=== PATIENT | female | born 2000 | race American Indian/Alaskan Native ===

== ENCOUNTER 2019-09-24 15:08 | Emergency (ER) | payer MEDICAID ==
[2019-09-24 15:18] VITALS: BP 131/71
[2019-09-24 15:53] LABS: Basophils # (Auto) 0.1 K/mm3 (0.0-0.1); Basophils % (Auto) 0.8 % (0.0-1.8); Eosinophils # (Auto) 0.1 K/mm3 (0.0-0.4); Eosinophils % (Auto) 0.6 % (0.0-4.3); Hematocrit 37.6 % (30.3-42.9); Hemoglobin 12.1 gm/dl (10.1-14.3); Lymphocytes # (Auto) 2.3 K/mm3 (1.2-5.4); Lymphocytes % (Auto) 27.5 % (13.4-35.0); Mean Corpuscular HGB Conc 32 % (30-34); Mean Corpuscular Volume 80 fl (79-97); Monocytes # (Auto) 0.7 K/mm3 (0.0-0.8); Monocytes % (Auto) 8.9 % (0.0-7.3); Platelet Count 357 K/mm3 (140-440); Red Blood Count 4.73 M/mm3 (3.65-5.03); Red Cell Distribution Width 18.7 % (13.2-15.2)
[2019-09-24 16:04] LABS: BUN/Creatinine Ratio 13; Blood Urea Nitrogen 8 mg/dL (7-17); Calcium 9.5 mg/dL (8.4-10.2); Hemolysis Index 15
--- NOTE | 2019-09-24 17:25 | Emergency Department Report ---
ED HPI - General Chief complaint: Vaginal Bleeding Stated complaint: /BLEEDING/ABD PAIN Time Seen by Provider: 09/24/19 15:31 Source: patient Mode of arrival: Ambulatory Limitations: No Limitations - History of Present Illness Initial comments: This is a 19-year-old female nontoxic, well nourished in appearance, no acute signs of distress presents to the ED with c/o of vaginal bleeding and pelvic pain x1 day. Patient denies any abdominal upper pain. Patient denies any vaginal discharge or foul odor. Patient denies any nausea, vomiting, chest pain, shortness of breathe, fever, chills, headache, stiff neck, numbness, tingling. Patient denies any urinary symptoms. Patient denies any allergies or PMH. MD Complaint: vaginal bleeding, other (pelvic pain) -: days(s) Location: pelvis Radiation: none Severity: mild Severity scale (0 -10): 3 Quality: cramping, aching Consistency: constant Improves with: none Worsens with: none Associated symptoms: vaginal bleeding. denies: nausea/vomiting, vaginal discharge, abdominal pain, dysuria, headache, vision changes, malaise, dysparuenia, rash, seizure, shortness of breath, syncope, weakness Vaginal bleeding: light :: Yes Pre-huong care: none - Related Data Previous Rx's Medication Instructions Recorded Last Taken Type predniSONE [Deltasone] 20 mg PO QDAY #5 tab 02/16/15 Unknown Rx 21/Iron Fu/Folic Acid 1 each PO DAILY #30 tablet 09/24/19 Unknown Rx [ Complete Caplet] Allergies Allergy/AdvReac Type Severity Reaction Status Date / Time No Known Allergies Allergy Unverified 02/16/15 16:36 ED Review of Systems ROS: Stated complaint: /BLEEDING/ABD PAIN Other details as noted in HPI Constitutional: denies: chills, fever Eyes: denies: eye pain, eye discharge, vision change ENT: denies: ear pain, throat pain Respiratory: denies: cough, shortness of breath, wheezing Cardiovascular: denies: chest pain, palpitations Endocrine: no symptoms reported Gastrointestinal: denies: abdominal pain, nausea, vomiting, diarrhea Genitourinary: abnormal menses. denies: urgency, dysuria, discharge Musculoskeletal: denies: back pain, joint swelling, arthralgia Skin: denies: rash, lesions Neurological: denies: headache, weakness, paresthesias Psychiatric: denies: anxiety, depression Hematological/Lymphatic: denies: easy bleeding, easy bruising ED Past Medical Hx - Past Medical History Previous Medical History?: No - Surgical History Past Surgical History?: No - Social History Smoking Status: Never Smoker Substance Use Type: None - Medications Home Medications: Home Medications Medication Instructions Recorded Confirmed Last Taken Type predniSONE [Deltasone] 20 mg PO QDAY #5 tab 02/16/15 Unknown Rx 21/Iron Fu/Folic Acid 1 each PO DAILY #30 tablet 09/24/19 Unknown Rx [ Complete Caplet] ED Physical Exam - General Limitations: No Limitations General appearance: alert, in no apparent distress - Head Head exam: Present: atraumatic, normocephalic - Neck Neck exam: Present: normal inspection, full ROM - GI/Abdominal GI/Abdominal exam: Present: soft, normal bowel sounds. Absent: distended, tenderness, guarding, rebound, rigid, diminished bowel sounds - Extremities Exam Extremities exam: Present: normal inspection, full ROM - Back Exam Back exam: Present: normal inspection, full ROM. Absent: tenderness, CVA tenderness (R), CVA tenderness (L), muscle spasm, paraspinal tenderness, vertebral tenderness, rash noted - Neurological Exam Neurological exam: Present: alert, oriented X3, normal gait - Psychiatric Psychiatric exam: Present: normal affect, normal mood - Skin Skin exam: Present: warm, dry, intact, normal color. Absent: rash ED Course Vital Signs 09/24/19 15:11 Temperature 98.1 F Pulse Rate 89 Respiratory 20 Rate Blood Pressure 131/71 O2 Sat by Pulse 99 Oximetry - Reevaluation(s) Reevaluation #1: 09/24/19 17:25 Patient is speaking in full sentences with no signs of distress noted. ED Medical Decision Making - Lab Data Result diagrams: 09/24/19 15:44 09/24/19 15:44 - Medical Decision Making This is a 19-year-old female presents with threatened miscarriage. Patient is stable and was examined by me. Normal abdominal exam. US OB obtained and dictated by the radiologist. Ua obtained. Quantative serum test obtained. Patient notified of the US report with no questions noted by the patient. Patient was instructed f/u with [facility] in 3-5 days. RH factor positive. Labs within normal limits. At time of discharge, the patient does not seem toxic or ill in appearance. No acute signs of distress noted. Patient agrees to discharge treatment plan of care. No further questions noted by the patient. Critical care attestation.: If time is entered above; I have spent that time in minutes in the direct care of this critically ill patient, excluding procedure time. ED Disposition Clinical Impression: Threatened miscarriage Disposition: DC- TO HOME OR SELFCARE Is pt being admited?: No Does the pt Need Aspirin: No Condition: Stable Instructions: Threatened Miscarriage (ED) Additional Instructions: Follow-up with a OBGYN doctor in 3-5 days or if symptoms worsen and continue return to emergency room as soon as possible. Prescriptions: 21/Iron Fu/Folic Acid [ Complete Caplet] 1 each PO DAILY #30 tablet Referrals: PRIMARY CARE, [Primary Care Provider] - 3-5 Days FREDRICK CERRATO MD [Staff Physician] - 3-5 Days [facility] [Provider Group] - 3-5 Days Forms: Work/School Release Form(ED)
[2019-09-24 17:45] LABS: Color,Urine Straw (Yellow)
--- NOTE | 2019-09-24 17:46 | Ultrasound Report ---
ULTRASOUND OBSTETRIC INDICATION / CLINICAL INFORMATION: pelvic pain and vaginal bleeding. TECHNIQUE: Transabdominal and Transvaginal. COMPARISON: None available. FINDINGS: GESTATIONAL SAC: Well-defined oval shape and intrauterine in location. 1.7 x 2.6 x 2.0 cm subchorioni c hemorrhage/implantation bleed YOLK SAC: No significant abnormality. EMBRYO/FETUS: No significant abnormality. - [place]-Rump Length = 1.5 cm = 7 weeks, 6 day(s). - Heart Rate, beats per minute (if present) = 159 ADNEXA: 1.8 cm right ovarian follicular cyst. 2.2 cm left ovarian follicular cyst. FREE FLUID: None. ADDITIONAL FINDINGS: None. IMPRESSION: 1. Single, living intrauterine with estimated sonographic age of 7 weeks, 6 day(s). 2. Subchorionic hemorrhage/implantation bleed 3. Bilateral ovarian follicular cysts. No free fluid Signer Name: Dc Begum MD Signed: 09/24/2019 5:42 PM Workstation Name: [id number]
--- NOTE | 2019-09-24 17:46 | Ultrasound Report ---
ULTRASOUND OBSTETRIC INDICATION / CLINICAL INFORMATION: pelvic pain and vaginal bleeding. TECHNIQUE: Transabdominal and Transvaginal. COMPARISON: None available. FINDINGS: GESTATIONAL SAC: Well-defined oval shape and intrauterine in location. 1.7 x 2.6 x 2.0 cm subchorioni c hemorrhage/implantation bleed YOLK SAC: No significant abnormality. EMBRYO/FETUS: No significant abnormality. - [place]-Rump Length = 1.5 cm = 7 weeks, 6 day(s). - Heart Rate, beats per minute (if present) = 159 ADNEXA: 1.8 cm right ovarian follicular cyst. 2.2 cm left ovarian follicular cyst. FREE FLUID: None. ADDITIONAL FINDINGS: None. IMPRESSION: 1. Single, living intrauterine with estimated sonographic age of 7 weeks, 6 day(s). 2. Subchorionic hemorrhage/implantation bleed 3. Bilateral ovarian follicular cysts. No free fluid Signer Name: Dc Begum MD Signed: 09/24/2019 5:42 PM Workstation Name: [id number]
[2019-09-24 17:48] LABS: Bilirubin,Urine Negative (Negative)
[2019-09-24 17:49] LABS: Blood,Urine Negative (Negative); Protein,Urine <15 mg/dL mg/dL (Negative); Urobilinogen,Urine < 2.0 mg/dL (<2.0)
[2019-09-24 17:52] LABS: Mucus,Urine Few /HPF
== END 2019-09-24 17:55 | disposition home or self-care (01) ==
LOC: ED 15:08
DX: O20.0 Threatened abortion (principal); Z3A.01 Less than 8 weeks gestation of pregnancy
CPT/HCPCS: 36415; 76801; 76817; 80048; 81001; 84702; 85025; 86900; 86901

== ENCOUNTER 2020-04-16 07:44 | Inpatient (IN) | payer MEDICAID ==
[2020-04-16] MEDS ORDERED: miSOPROStol 200 MCG TAB PR PRN (08:24)
[2020-04-16] MEDS ORDERED: TERBUTALINE 1 MG/1 ML INJ SUB-Q PRN (08:24)
[2020-04-16] MEDS ORDERED: CARBOPROST TROMETHAMINE 250 MCG/1 ML INJ IM PRN (08:24)
[2020-04-16] MEDS ORDERED: MINERAL OIL 30 ML ORAL LIQD PO PRN (08:24)
[2020-04-16] MEDS ORDERED: ePHEDrine SULFATE 50 MG/1 ML INJ IV PRN (08:24)
[2020-04-16] MEDS ORDERED: ONDANSETRON 4 MG/2 ML INJ IV PRN (08:24)
[2020-04-16] MEDS ORDERED: fentaNYL 100 MCG/2 ML INJ IV PRN (08:24)
[2020-04-16] MEDS ORDERED: OXYTOCIN 10 UNIT/1 ML INJ IM PRN (08:24)
[2020-04-16] MEDS ORDERED: LIDOCAINE (2%) 20 MG/1 ML VIAL 20 ML MDV INFILTRATI ONE (08:24)
[2020-04-16] MEDS ORDERED: MAGNESIUM SULFATE 4 GM/100 ML BAG IV ONE ×2 (08:34→09:00)
[2020-04-16 08:36] LABS: Bacteria,Urine 1+ /HPF (Negative); Bilirubin,Urine NEG (Negative); Blood,Urine NEG (Negative); Color,Urine Straw (Yellow); Urobilinogen,Urine < 2.0 mg/dL (<2.0)
--- NOTE | 2020-04-16 08:39 | History and Physical Report ---
History of Present Illness Date of examination: 04/16/20 Chief complaint: Labor contractions History of present illness: pt arrived via EMS in labor @ 34+2 weeks Pt reports recent admission to [facility] for pre-e, d/c'd 2 days ago on bed rest (no meds) pt denies surgical or medical hx reports +CT 3 years ago reports THC in last month hx EAB and Vac assisted delivery 7#, full term, no complications. 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 (3 years ago) Family/Genetic History: none Social history: single, other (THC use last month) - Obstetrical History Expected Date of Delivery: 05/26/20 Actual Gestation: 34 Week(s) 2 Day(s) : 3 Para: 1 Hx # Term Pregnancies: 1 Number of Pregnancies: 0 Spontaneous Abortions: 0 Induced : 1 Number of Living Children: 1 Medications and Allergies Allergies Allergy/AdvReac Type Severity Reaction Status Date / Time No Known Allergies Allergy Unverified 02/16/15 16:36 Home Medications Medication Instructions Recorded Confirmed Last Taken Type predniSONE [Deltasone] 20 mg PO QDAY #5 tab 02/16/15 Unknown Rx 21/Iron Fu/Folic Acid 1 each PO DAILY #30 tablet 09/24/19 Unknown Rx [ Complete Caplet] Active Meds: Active Medications Carboprost Tromethamine (Hemabate) 250 mcg IM ONCE PRN PRN Reason: Uterine Bleeding Ephedrine Sulfate (Ephedrine Sulfate) 10 mg IV Q2M PRN PRN Reason: Hypotension Fentanyl (Sublimaze) 100 mcg IV Q2H PRN PRN Reason: Pain,Severe (7-10) LABOR PAIN Lactated Ringer's (Lactated Ringers) 1,000 mls @ 125 mls/hr IV DIRECT JOSE Lactated Ringer's (Lactated Ringers) 1,000 mls @ 125 mls/hr IV DIRECT JSOE Oxytocin/Sodium Chloride (Pitocin/Ns 30 Unit/500ml) 30 units in 500 mls @ 40 mls/hr IV TITR JOSE; Protocol Ampicillin Sodium (Ampicillin/Ns 2 Gm/100 Ml) 2 gm in 100 mls @ 100 mls/hr IV ONCE ONE; Protocol Stop: 04/16/20 09:59 Ampicillin Sodium (Ampicillin/Ns 1 Gm/50 Ml) 1 gm in 50 mls @ 100 mls/hr IV Q4HR JOSE; Protocol Lactated Ringer's (Lactated Ringers) 1,000 mls @ 125 mls/hr IV DIRECT JOSE Magnesium Sulfate (Magnesium Sulfate 4gm/100ml) 4 gm in 100 mls @ 300 mls/hr IV ONCE ONE Stop: 04/16/20 08:45 Magnesium Sulfate (Magnesium Sulfate 40gm/1000ml) 40 gm in 1,000 mls @ 50 mls/hr IV DIRECT JOSE Lidocaine (Xylocaine 2%) 20 ml INFILTRATI ONCE ONE Stop: 04/16/20 08:25 Mineral Oil (Mineral Oil) 30 ml PO QHS PRN PRN Reason: Constipation Misoprostol (Cytotec) 800 mcg CA ONCE PRN PRN Reason: Uterine Bleeding Ondansetron HCl (Zofran) 4 mg IV Q8H PRN PRN Reason: Nausea And Vomiting Oxytocin (Pitocin) 10 unit IM ONCE PRN PRN Reason: Uterine Bleeding Terbutaline Sulfate (Brethine) 0.25 mg SUB-Q ONCE PRN PRN Reason: Hyperstimulation/Hypertonicity Review of Systems All systems: negative - Vital Signs Vital signs: Vital Signs Temp Resp 98.2 F 17 04/16/20 08:17 04/16/20 08:17 Temp Pulse Resp BP Pulse Ox 98.2 F 60 17 180/95 04/16/20 08:17 04/16/20 08:18 04/16/20 08:17 04/16/20 08:18 - Physical Exam Breasts: Positive: normal Cardiovascular: Regular rate Lungs: Positive: Clear to auscultation, Normal air movement Abdomen: Positive: normal appearance, soft Genitourinary (Female): Positive: normal external genitalia, normal perenium Vagina: Positive: normal moisture Anus/Rectum: Positive: normal perianal skin Extremities: Positive: normal - Obstetrical FHR: auscultation normal Uterine Contraction Monitor Mode: External Cervical Dilatation: 7 (per triage nurse) Cervical Effacement Percentage: 100 station: -1 Uterine Contraction Frequency (min): 2-3 Uterine Contraction Duration: 60 Uterine Contraction Pattern: Regular Uterine Tone Measurement Phase: Contraction Uterine Contraction Intensity: Strong/Firm Results All other labs normal. Assessment and Plan 20 y/o @ 34+2 weeks admitted in labor, reports recent dx of pre-e w/ admission to [facility], [facility] completed. Admission orders in EMR, anticipate vaginal delivery. Dr. Barber aware. - Patient Problems (1) 34 weeks gestation of Current Visit: Yes Status: Acute Plan to address problem: NICU notified (2) labor Current Visit: Yes Status: Acute Qualifiers: labor trimester: third trimester labor delivery status: with delivery in third trimester Fetus number: single or unspecified fetus Qualified Code(s): O60.14X0 - labor third trimester with delivery third trimester, not applicable or unspecified (3) Pre-eclampsia Current Visit: Yes Status: Acute Qualifiers: Trimester: third trimester Qualified Code(s): O14.93 - Unspecified pre- eclampsia, third trimester Plan to address problem: Magnesium sulfate for neuro protection strict I&O delivery is eminent
[2020-04-16] MEDS ORDERED: MAGNESIUM SULFATE 40GM/1000ML 40 GM/1,000 ML BAG IV SCH (09:00)
[2020-04-16] MEDS ORDERED: OXYTOCIN DRIP 30 UNITS/500 ML BAG IV SCH (09:00)
[2020-04-16] MEDS ORDERED: LACTATED RINGERS 1,000 ML IV SCH ×2 (09:00)
[2020-04-16] MEDS ORDERED: AMPICILLIN/NS 2 GM/100 ML 2 GM/100 ML BAG IV ONE (09:00)
--- NOTE | 2020-04-16 09:42 | Event Note ---
Date: 04/16/20 pt states EDC might be 05/04/2020, MFM she was seeing for pre-e set date as 05/26/20 but that was late in the . Pt states she started care in [place] x5-6 visits and they told her her edc was 05/04/2020.
--- NOTE | 2020-04-16 09:44 | Procedure Note ---
OB Delivery Note - Delivery Date of Delivery: 04/16/20 Director Of Graduate Medical Education: LAURENT HUERTAS ([facility]) Estimated blood loss: 300cc - Vaginal Delivery presentation: vertex Delivery position: OA Intrapartum events: labor-<37 weeks, meconium, preeclampsia Delivery induction: none Delivery monitor: external FHT, external uterine Route of delivery: Delivery placenta: spontaneous Delivery cord: nuchal cord (tight - somersault ), 3 umbilical vessels Episiotomy: none Delivery laceration: none Anesthesia: none Delivery comments: Male birthed over intact perineum, tight cord around neck and torso, somersaulted though. Cord clamped and cut, handed off to warmer for assessment by NICU team. Placenta del spontaneously in 2 pieces, appears to be complete with possible velamentous cord insertion. no lacerations to repair. IV site unusable initially, and with hx PPH, cytotec placed rectally. EBL 300. all counts correct. taken to NICU for observation d/t possible prematurity. pt will remain on L&D x 24hours for Mag sulfate therapy. - Infant A Gender: Male (4#12)
[2020-04-16] MEDS ORDERED: PROMETHAZINE 25 MG TAB PO PRN (10:00)
[2020-04-16] MEDS ORDERED: BENZOCAINE/MENTHOL 20/0.5% TOP SPRAY 56 GM TP PRN (10:00)
[2020-04-16] MEDS ORDERED: diphenhydrAMINE 25 MG CAP PO PRN (10:00)
[2020-04-16] MEDS ORDERED: LANOLIN/ZINC/DIMETHICONE (LANSINOH) 7 GM TP PRN (10:00)
[2020-04-16] MEDS ORDERED: WITCH HAZEL/ GLYCERIN PAD TP PRN (10:00)
[2020-04-16] MEDS: IBUPROFEN 600 MG TAB PO SCH ×2 (10:16→18:06)
[2020-04-16 10:29] LABS: Amphetamine Screen,Urine Negative; Benzodiazepines Screen,Urine Negative; Cannabinoid Screen,Urine Negative; Cocaine Screen,Urine Negative; Methadone Screen,Urine Negative; Opiate Screen,Urine Negative
[2020-04-16] MEDS: ACETAMINOPHEN 325 MG TAB PO PRN ×2 (11:00→18:06)
[2020-04-16 12:20] LABS: Hepatitis C Virus Antibody Non-Reactive (NonReactive)
[2020-04-16] MEDS: LACTATED RINGERS 1,000 ML IV SCH (12:40)
[2020-04-16] MEDS ORDERED: AMPICILLIN/NS 1 GM/50 ML 1 GM/50 ML BAG IV SCH (14:00)
[2020-04-16] MEDS ORDERED: KETOROLAC 30 MG/1 ML INJ ONE (16:43)
[2020-04-16] MEDS ORDERED: BUPIVACAINE /DEX-WATER 0.75% (2 ML) AMPULE INFILTRATI ONE (16:43)
[2020-04-16] MEDS ORDERED: BUPIVACAINE/PF (0.5%) 5 MG/1 ML 30 ML VIAL INFILTRATI ONE (16:43)
[2020-04-16] MEDS ORDERED: ONDANSETRON 4 MG/2 ML INJ ONE (16:43)
[2020-04-16 18:05] LABS: Hematocrit 31.8 % (30.3-42.9); Hemoglobin 10.5 gm/dl (10.1-14.3); Mean Corpuscular HGB Conc 33 % (30-34); Mean Corpuscular Volume 78 fl (79-97); Platelet Count 277 K/mm3 (140-440); Red Blood Count 4.09 M/mm3 (3.65-5.03); Red Cell Distribution Width 15.5 % (13.2-15.2)
[2020-04-16 18:19] LABS: Alanine Aminotransferase 12 units/L (7-56)
[2020-04-16] MEDS ORDERED: hydrALAZINE 20 MG/1 ML INJ IV ONE (19:29)
--- NOTE | 2020-04-16 19:33 | Event Note ---
Date: 04/16/20 Mg Level 7.6, order given to RN to hold for 1hoour then restart at 1gm/hr.Also BP's increaseing, hydralazine 5mg IV order, RN aware. VAISHALI thomson
[2020-04-16] MEDS: FERROUS SULFATE 325 MG TAB PO SCH (20:39)
[2020-04-16] MEDS ORDERED: GABAPENTIN 300 MG CAP PO ONE (21:21)
[2020-04-16] MEDS: DOCUSATE SODIUM 100 MG CAP PO SCH (21:22)
[2020-04-16 21:52] LABS: Hemoglobin 10.8 gm/dl (10.1-14.3)
[2020-04-16] MEDS ORDERED: MAGNESIUM HYDROXIDE (MOM) ORAL LIQD UDC PO PRN (22:00)
[2020-04-17] MEDS: ACETAMINOPHEN 325 MG TAB PO PRN (04:03)
[2020-04-17] MEDS ORDERED: NIFEdipine*For Tocolysis only* 10 MG CAPSULE ONE (07:04)
[2020-04-17] MEDS ORDERED: NIFEdipine*For Tocolysis only* 10 MG CAPSULE PO ONE (07:05)
[2020-04-17] MEDS: LACTATED RINGERS 1,000 ML IV SCH (08:21)
--- NOTE | 2020-04-17 08:34 | Progress Note ---
Subjective - Subjective Date of service: 04/17/20 (Pt with abdominal cramping) Principal diagnosis: s/p , no care, on mag infusion for pre eclampsia. Patient reports: flatus [place]: doing well Objective - Vital Signs Latest vital signs: Vital Signs Temp Pulse Resp BP BP Pulse Ox 04/17/20 08:28 91 H 100 04/17/20 08:23 97 H 99 04/17/20 08:18 94 H 99 04/17/20 08:13 86 100 04/17/20 08:08 98.9 F 85 14 132/69 100 04/17/20 08:03 78 100 04/17/20 07:58 81 100 04/17/20 07:57 78 132/69 04/17/20 07:53 82 100 04/17/20 07:48 93 H 100 04/17/20 07:47 75 134/85 04/17/20 07:43 80 100 04/17/20 07:42 71 134/98 04/17/20 07:38 77 100 04/17/20 07:33 71 100 04/17/20 07:28 81 100 04/17/20 07:23 63 100 04/17/20 07:18 65 100 04/17/20 07:13 66 100 04/17/20 07:08 84 100 04/17/20 07:03 62 100 04/17/20 06:58 74 100 04/17/20 06:57 78 187/112 04/17/20 06:53 64 100 04/17/20 06:48 63 100 04/17/20 06:43 79 100 04/17/20 06:38 74 99 04/17/20 06:33 65 100 04/17/20 06:28 66 100 04/17/20 06:23 63 100 04/17/20 06:18 63 100 04/17/20 06:13 69 100 04/17/20 06:08 72 100 04/17/20 06:03 63 100 04/17/20 05:58 71 147/96 100 20 05:53 71 100 04/17/20 05:48 66 100 04/17/20 05:43 69 100 04/17/20 05:38 66 100 04/17/20 05:33 74 100 04/17/20 05:28 67 100 11/18/20 05:23 70 100 11/18/20 05:18 67 100 11/18/20 05:13 72 100 11/18/20 05:08 88 100 11/18/20 05:03 62 100 11/18/20 04:58 67 100 11/18/20 04:57 60 136/90 11/18/20 04:53 71 100 11/18/20 04:48 79 100 11/18/20 04:43 65 100 11/18/20 04:38 67 100 11/18/20 04:33 83 100 11/18/20 04:28 69 100 11/18/20 04:23 68 100 11/18/20 04:18 78 100 11/18/20 04:13 84 100 11/18/20 04:08 87 100 11/18/20 04:03 65 100 11/18/20 03:58 65 100 11/18/20 03:57 79 134/85 11/18/20 03:53 87 100 11/18/20 03:48 63 100 11/18/20 03:43 69 100 11/18/20 03:38 72 100 11/18/20 03:33 98 H 100 11/18/20 03:28 69 100 11/18/20 03:23 68 100 11/18/20 03:18 69 100 11/18/20 03:13 71 100 11/18/20 03:08 72 100 11/18/20 03:03 74 100 11/18/20 02:58 65 100 11/18/20 02:57 60 141/92 11/18/20 02:52 86 99 11/18/20 02:47 70 100 11/18/20 02:42 67 100 11/18/20 02:37 69 161/108 100 11/18/20 02:32 89 100 11/18/20 02:27 87 100 11/18/20 02:22 67 100 11/18/20 02:17 86 100 11/18/20 02:12 87 100 11/18/20 02:07 66 100 11/18/20 02:02 69 100 11/18/20 01:57 81 178/109 97 11/18/20 01:52 68 100 11/18/20 01:47 72 100 11/18/20 01:42 72 100 11/18/20 01:37 68 100 11/18/20 01:32 72 100 18/20 01:27 67 100 18/20 01:22 63 100 1820 01:17 81 100 1820 01:12 66 100 20 01:07 69 100 18/20 01:02 81 100 20 01:00 72 148/89 18/20 00:57 77 148/89 100 1820 00:52 71 100 1820 00:47 76 100 18/20 00:43 65 155/89 1820 00:42 71 100 18/20 00:37 71 100 1820 00:32 79 100 1820 00:27 78 100 1820 00:22 83 100 20 00:17 71 100 20 00:12 86 100 20 00:07 86 100 20 00:02 88 100 20 23:57 79 148/96 100 20 23:52 84 99 17/20 23:47 83 100 20 23:42 85 100 1720 23:37 99 H 99 20 23:32 89 100 20 23:27 85 100 20 23:22 81 100 20 23:17 85 100 20 23:07 81 100 20 23:02 79 100 20 22:57 82 139/92 100 20 22:52 81 100 20 22:49 71 136/90 17/20 22:47 78 100 1720 22:42 80 100 17/20 22:37 87 100 1720 22:32 78 100 20 22:27 82 100 20 22:22 87 96 20 21:57 88 126/78 1720 21:33 89 99 1720 21:28 86 100 1720 21:23 83 100 1720 21:18 84 100 1720 21:13 86 100 20 21:09 79 148/96 11/17/20 21:08 78 100 17/20 21:03 83 100 17/20 20:58 85 100 17/20 20:57 92 H 150/101 17/20 20:53 86 100 17/20 20:52 84 152/100 17/20 20:48 90 100 17/20 20:43 80 100 17/20 20:41 74 175/105 17/20 20:38 74 137/100 100 17/20 20:34 65 155/104 17/20 20:33 63 100 17/20 20:28 61 100 17/20 20:23 89 100 17/20 20:18 63 100 17/20 20:13 63 99 17/20 20:08 62 99 17/20 20:03 64 100 17/20 19:59 107 H 148/105 75 L 17/20 19:58 63 100 17/20 19:57 67 158/103 17/20 19:52 69 99 17/20 19:47 66 100 17/20 19:42 68 100 17/20 19:37 84 100 17/20 19:32 80 99 17/20 19:27 76 146/103 100 17/20 19:22 76 100 17/20 19:17 69 100 17/20 19:12 78 100 17/20 19:07 76 100 17/20 19:02 73 100 17/20 18:57 69 173/113 100 17/20 18:52 81 100 17/20 18:47 80 100 17/20 18:42 74 100 17/20 18:37 71 100 17/20 18:32 73 100 17/20 18:27 66 100 17/20 18:22 71 100 17/20 18:17 71 100 17/20 18:12 70 100 17/20 18:07 72 100 17/20 18:02 70 99 17/20 17:57 77 132/96 100 17/20 17:52 75 100 17/20 17:47 76 100 17/20 17:42 74 100 17/20 17:37 74 100 17/20 17:32 74 100 17/20 17:27 69 100 17/20 17:22 86 99 17/20 17:17 71 100 17/20 17:13 69 134/96 17/20 17:12 75 100 17/20 17:07 72 100 17/20 17:02 68 100 17/20 16:57 73 100 17/20 16:52 71 100 17/20 16:47 71 100 17/20 16:43 68 134/93 17/20 16:42 74 100 17/20 16:37 72 100 17/20 16:32 77 100 17/20 16:27 72 100 17/20 16:22 73 100 04/16/20 16:17 68 100 17/20 16:13 71 148/104 17/20 16:12 75 99 17/20 16:07 71 100 17/20 16:02 73 100 17/20 15:57 69 100 17/20 15:52 73 100 17/20 15:47 66 100 17/20 15:43 72 135/91 1720 15:42 73 100 17/20 15:37 66 100 17/20 15:32 73 100 17/20 15:27 84 100 17/20 15:22 75 100 1720 15:17 82 100 1720 15:13 80 155/98 1720 15:08 84 100 17/20 15:03 77 100 17/20 14:58 67 100 17/20 14:53 69 100 17/20 14:48 74 100 17/20 14:43 65 140/92 100 1720 14:38 65 100 17/20 14:33 75 100 17/20 14:28 68 100 17/20 14:23 67 100 17/20 14:18 69 100 1720 14:13 67 136/92 100 17/20 14:08 65 100 17/20 14:03 66 100 20 13:58 62 100 20 13:53 65 100 20 13:48 70 100 20 13:43 74 134/85 100 20 13:38 64 100 04/16/20 13:33 65 100 20 13:28 74 100 20 13:23 65 100 20 13:18 67 99 20 13:13 81 169/107 100 20 13:08 65 100 20 13:03 68 100 20 12:58 71 100 20 12:53 84 99 20 12:52 59 L 148/100 20 12:48 73 100 20 12:43 70 159/104 100 20 12:38 66 100 20 12:33 66 99 20 12:28 66 100 20 12:23 68 100 20 12:18 68 100 20 12:13 61 140/94 99 20 12:08 63 100 20 12:03 77 99 20 11:58 65 99 20 11:53 65 99 20 11:48 61 99 20 11:43 83 168/98 100 20 11:38 62 100 20 11:33 64 99 20 11:28 64 99 20 11:23 63 99 20 11:18 62 100 04/16/20 11:13 62 140/88 100 20 11:08 64 100 04/16/20 11:03 64 100 17/20 10:58 67 100 17/20 10:53 66 100 17/20 10:48 63 100 17/20 10:43 61 154/96 100 17/20 10:38 68 100 17/20 10:34 78 143/109 17/20 10:33 65 100 17/20 10:28 68 100 17/20 10:23 73 100 17/20 10:18 67 100 11/17/20 10:13 72 100 04/16/20 10:08 73 154/98 100 04/16/20 10:03 70 100 04/16/20 10:01 68 166/101 04/16/20 09:58 75 100 04/16/20 09:53 74 100 04/16/20 09:46 67 130/99 04/16/20 09:26 75 162/101 04/16/20 09:07 86 100 04/16/20 09:02 96 H 99 04/16/20 08:49 88 131/83 Intake and Output 04/16/20 04/17/20 04/17/20 22:59 06:59 14:59 Intake Total 1480 Output Total 2200 1300 100 Balance -2200 180 -100 Intake: IV 1000 Lactated Ringers 1,000 ml 1000 @ 125 mls/hr IV DIRECT JOSE Rx#:[id number] Oral 480 Output: Urine 2200 1300 100 Indwelling Catheter 2200 1300 100 Other: Total, Intake Amount 240 Total, Output Amount 600 500 100 - Exam Narrative Exam: Pt states that she has a slight CADENA. Denies blurred vision, spots before her eyes, shortness of breath, chest pain, and upper abdominal pain. She received a dose of Procardia 10 mg after elevated BP's of 180's/100's. BP ranges are now 110-130's/60-70's. Also her mag was turned off for two hours during the shift production associate and turned back on at 2100. She had elevated mag levels of 7.6. Will continue with mag for now until 11am. Will also discuss pt with Dr. Lyles. Explained plan of care to the patient: monitoring of blood pressures, mag administration keeping on until 11am, taking out Andrade, and if blood pressures remain stable we will transfer her to the mother baby. Pt verbalized understanding. Breasts: Present: deferred Cardiovascular: Present: Regular rate, Normal S1, Normal S2 Lungs: Present: Clear to auscultation Abdomen: Present: normal appearance, soft Vulva: both: normal Uterus: Present: normal (Moderate lochia rubra), firm Extremities: Present: normal Deep Tendon Reflex Grade: Normal +2 - Labs Labs: Abnormal lab results 04/16/20 04/16/20 04/16/20 Range/Units 17:30 17:30 17:30 WBC 17.6 H (4.5-11.0) K/mm3 MCV 78 L (79-97) fl MCH 26 L (28-32) pg RDW 15.5 H (13.2-15.2) % Magnesium 7.60 H (1.7-2.3) mg/dL Lactate Dehydrogenase 268 H (91-180) units/L 04/16/20 04/17/20 Range/Units 21:34 03:51 WBC (4.5-11.0) K/mm3 MCV (79-97) fl MCH (28-32) pg RDW (13.2-15.2) % Magnesium 5.20 H 5.30 H (1.7-2.3) mg/dL Lactate Dehydrogenase (91-180) units/L
[2020-04-17] MEDS ORDERED: DIPHtheria,PERTUSSIS(ACELL),TETANUS VACCINE/PF 0.5 ML VIAL IM ONE (09:34)
[2020-04-17] MEDS: IBUPROFEN 600 MG TAB PO SCH ×3 (11:57→18:20)
[2020-04-17] MEDS: PRENATAL VIT27-FE FUMARATE-FOLIC ACID VIT TAB PO SCH (11:57)
[2020-04-17] MEDS: FERROUS SULFATE 325 MG TAB PO SCH (16:25)
[2020-04-18] MEDS: IBUPROFEN 600 MG TAB PO SCH ×3 (01:29→13:45)
[2020-04-18] MEDS: FERROUS SULFATE 325 MG TAB PO SCH ×2 (01:30→13:45)
[2020-04-18] MEDS: DOCUSATE SODIUM 100 MG CAP PO SCH ×2 (01:31→10:30)
--- NOTE | 2020-04-18 08:22 | Discharge Summary ---
Providers - Providers Date of Admission: 04/16/20 09:11 Date of discharge: 04/18/20 (Pt agrees with D/C home today) Attending physician: STEVE GIPSON Primary care physician: CONTENT ASSISTANT Hospitalization Reason for admission: active labor, IUP - Delivery: Episiotomy: none Laceration: none complications: other (pre-eclampsia) Discharge diagnosis: delivery baby: male Pertinent studies: BP's 110-130s/60-80 with most recent 130's/70's this AM. Post-delivery H/H . Hospital course: 20 y.o. female, , limited PNC, PTL at 34wks. complicated by pre- eclampsia, MagSO4 given PP, and started on Labetalol 200 mg BID. P: D/C home today on anti-hypertensive regimen. F/U in office in one week for BP check. Condition at discharge: Good Disposition: DC- TO HOME OR SELFCARE - Discharge Diagnoses (1) Pre-eclampsia Status: Acute Qualifiers: Trimester: third trimester Qualified Code(s): O14.93 - Unspecified pre- eclampsia, third trimester Comment: BP ranging 110-130/60-80 with most recent BP 130s/70s this AM. Denies CADENA, blurry vision, dizziness, chest pain, RUQ pain, and swelling. Continues with Labetalol 200 mg BID. P: Will continue with anti-hypertensive regimen at discharge and f/u in office in 1-wk for BP check. Instructed to notify provider if warning s/s occur. (2) (spontaneous vaginal delivery) Status: Acute Comment: Pt resting in bed quietly. No visible s/s of distress. Reports mild ABD cramping. VSSAF. Ambulating and voiding without difficulty. Fundus firm at umbilicus. Scant bleeding seen. in NICU without difficulty. Desires circumcision when appropriate. Interested in Depo for PP contraception. P: D/C home today, continue Labetalol 200 mg BID, and f/u in office in 1 wk for BP check. Plan - Discharge Medications Prescriptions: labetaloL [Labetalol 200mg TAB] 200 mg PO BID #120 tablet - Provider Discharge Summary Activity: no sex for 6 weeks, no heavy lifting 4 weeks, no strenuous exercise Diet: routine Instructions: routine Additional instructions: [] Smoking cessation referral if applicable(refer to patient education folder for contact #) [] Refer to [facility] Booklet Call your doctor immediately for: * Fever > 100.5 * Heavy vaginal bleeding ( >1 pad per hour) * Severe persistent headache * Shortness of breath * Reddened, hot, painful area to leg or breast * Drainage or odor from incision. * Keep incision clean and dry at all times and follow doctor's instructions regarding bathing/showering - Follow up plan Follow up: PRIMARY CARE, [Primary Care Provider] - 7 Days (Congratulations! Please contact our office at [phone] to schedule your 1-week visit for blood pressure check. Also bring EMLA cream to your son's circumcision appointment for further instructions. Feel free to call us with any questions or concerns. )
[2020-04-18] MEDS ORDERED: medroxyPROGESTERone ACETATE 150 MG/ML SYRINGE IM SCH (09:00)
[2020-04-18] MEDS: PRENATAL VIT27-FE FUMARATE-FOLIC ACID VIT TAB PO SCH (10:30)
[2020-04-18 15:12] VITALS: BP 120/76
== END 2020-04-18 17:15 | disposition home or self-care (01) | DRG 775 ==
LOC: TRG 07:44 → APU 07:46 → LD 08:41 → TRG 09:10 → LD 09:11 → OB 04-17 13:11
PROVIDERS: ADMIT Obstetrics & Gynecology; ATTEND Obstetrics & Gynecology
PROC: 10E0XZZ Delivery of Products of Conception, External Approach (ICD-10-PCS; principal; 2020-04-16)
PROC: 3E0234Z Introduction of Serum, Toxoid and Vaccine into Muscle, Percutaneous Approach (ICD-10-PCS; 2020-04-17)
DX: O60.14X0 Preterm labor third trimester with preterm delivery third trimester, not applicable or unspecified (principal); O14.94 Unspecified pre-eclampsia, complicating childbirth; Z37.0 Single live birth; Z23 Encounter for immunization; Z3A.34 34 weeks gestation of pregnancy; Z20.828 Contact with and (suspected) exposure to other viral communicable diseases; O77.0 Labor and delivery complicated by meconium in amniotic fluid; O69.1XX0 Labor and delivery complicated by cord around neck, with compression, not applicable or unspecified
CPT/HCPCS: 36415; 80307; 81001; 82565; 83615; 83735; 84450; 84460; 84550; 85014; 85018; 85027; 86592; 86706; 86762; 86803; 86850; 86900; 86901; 87806; 88307; G0378; J0360; J1050; J1885; J2405; J2590; J3475; J3490; J7120; U0003